=== PATIENT | female | born 1980 | race Two or more races ===

== ENCOUNTER 2016-07-15 05:40 | Day surgery (SDC) | payer BC ==
[~2016-07-15 05:40] MED LIST: IBUPROFEN200 M2 PO; XANAX0.25 M1 PO
== END 2016-07-15 12:13 ==
LOC: SRG 05:40 → SHSB 05:41 → ORW 07:30 → PACU 08:40 → SHSB 10:00
PROC: 0WUF0JZ Supplement Abdominal Wall with Synthetic Substitute, Open Approach (ICD-10-PCS; principal; 2016-07-15)
DX: K43.2 Incisional hernia without obstruction or gangrene (principal); R60.0 Localized edema; I83.90 Asymptomatic varicose veins of unspecified lower extremity; E66.9 Obesity, unspecified; E78.5 Hyperlipidemia, unspecified; F17.210 Nicotine dependence, cigarettes, uncomplicated; E28.2 Polycystic ovarian syndrome; E66.01 Morbid (severe) obesity due to excess calories; Z68.42 Body mass index [BMI] 45.0-49.9, adult; Z88.1 Allergy status to other antibiotic agents; Z90.49 Acquired absence of other specified parts of digestive tract; Z90.89 Acquired absence of other organs; Z98.890 Other specified postprocedural states
CPT/HCPCS: C1781; J0690; J1170; J3010